=== PATIENT | male | born 1985 | race American Indian/Alaskan Native ===

== ENCOUNTER 2018-03-25 18:13 | Emergency (ER) | payer OTHER ==
[2018-03-25 18:14] VITALS: BMI 30.8
[2018-03-25 18:25] VITALS: RESP 18; O2SAT 97
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
[2018-03-25 19:51] VITALS: BP 133/87; PULSE 81; TEMP 98
[2018-03-25] MEDS ORDERED: Tdap Vaccine 0.5 ml Vial (10-64 yrs) IM ONE (20:09)
[2018-03-25] MEDS ORDERED: Bacitracin 500 Units/gm Oint Foilpak UD TOP ONE (20:09)
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
== END 2018-03-25 20:25 | disposition home or self-care (01) ==
LOC: C.ER 18:13
DX: S50.12XA Contusion of left forearm, initial encounter (principal); W23.0XXA Caught, crushed, jammed, or pinched between moving objects, initial encounter